=== PATIENT | female | born 1945 | race Caucasian/White ===

== ENCOUNTER → 2016-08-30 | Day surgery (SDC) | payer MEDICARE, BC ==
[~2016-08-30] MED LIST: LIDOCAINE 2% INJ (20 MG/ML) 20 ML MDV ONE
--- NOTE | 2016-08-30 10:54 | Operative Report ---
Operative Report DATE OF SURGERY: 08/30/16 PREOPERATIVE DIAGNOSIS: Asymmetric mammographic density upper outer quadrant left breast POSTOPERATIVE DIAGNOSIS: Same OPERATION: 1. Stereotactically directed incision mammography and core biopsies left breast. 2. Interpretation of intraoperative mammography and specimen radiograph. 3. Clip marker placement The upper outer quadrant left breast SURGEON: HAO DAVENPORT ANESTHESIA: Local TISSUE REMOVED OR ALTERED: Multiple cores left breast COMPLICATIONS: None ESTIMATED BLOOD LOSS: scant INTRAOPERATIVE FINDINGS: See below PROCEDURE: The patient was taken from the holding area to the radiology suite retractor room, with the left breast was placed in compression. Radiocarpal approach was taken to localize the area of interest which was in the upper outer quadrant of the left breast. This was an area of architectural distortion seen on the CC projection. After reviewing the images, and carefully considering the proximity of the target tissue to an overlying vein, we localized the 1 area of architectural distortion with the manuscript reader and the -15 view. Plan surgical time out conducted. The surface of the breast was prepped with Betadine, the skin anesthetized with 1% lidocaine, a narcisa made in the breast with 11 blade and the mammotome advanced the appropriate depth. Pre-and post- fire films of the mammotome showed satisfactory alignment with the target tissue. We then proceeded to obtain course in a circumferential fashion was well tolerated by the patient with negligible bleeding. Biopsy cores were recovered, placed in a container and imaged for documentation purposes. A clip marker was deployed into the upper part of the left breast, then the removed from the patient's left breast. She tolerated procedure well. Bleeding was negligible. Discharge instructions provided.
--- NOTE | 2016-08-30 10:56 | PDOC DISCHARGE SUMMARY ---
Discharge Summary (SDC) - Discharge Final Diagnosis: Asymmetric density upper quadrant left breast Date of Surgery: 08/30/16 Discharge Date: 08/30/16 Condition: Good Treatment or Instructions: Patient to work compressive bra, take Tylenol or Motrin when necessary pain, report also surgical clinic it scheduled follow-up date. She will take a shower when necessary Discharge Diet: As Tolerated Discharge Activity: Activity As Tolerated Home Care Assistance: None Needed Report the Following to Your Physician Immediately: Shortness of Breath, Increase in Pain, Fever over 101 Degrees
== END ==
LOC: RAD 09:31
PROVIDERS: ATTEND Surgery
PROC: 0HBU3ZX Excision of Left Breast, Percutaneous Approach, Diagnostic (ICD-10-PCS; principal; 2016-08-30)
DX: C50.412 Malignant neoplasm of upper-outer quadrant of left female breast (principal)
CPT/HCPCS: 88342 ×2; 88341 ×2; 88305 ×2; 19081; J3490

== ENCOUNTER 2016-10-17 07:44 | Day surgery (SDC) | payer MEDICARE, BC ==
[2016-10-10 09:00] LABS: HEMOGLOBIN 14.8 g/dL (12.0-15.5); HGB HCT DIFFERENCE 0.4; MEAN CORPUSCULAR HEMOGLOBIN 30.8 pg (27.0-33.4); MEAN CORPUSCULAR HGB CONC 33.6 g/dL (32.0-36.0); MEAN CORPUSCULAR VOLUME 91 fl (80-97); RED BLOOD COUNT 4.81 10^6/uL (3.72-5.28); RED CELL DISTRIBUTION WIDTH 13.6 % (11.5-14.0); WHITE BLOOD COUNT 6.5 10^3/uL (4.0-10.5)
[2016-10-10 09:29] LABS: ANION GAP 11 (5-19); BLOOD UREA NITROGEN 10 mg/dL (7-20); CALCIUM 9.7 mg/dL (8.4-10.2); CARBON DIOXIDE 27 mmol/L (22-30); CHLORIDE 100 mmol/L (98-107); CREATININE RESULT 0.64 mg/dL (0.52-1.25); GLUCOSE 102 mg/dL (75-110); POTASSIUM 4.6 mmol/L (3.6-5.0)
--- NOTE | 2016-10-10 13:34 | EKG REPORT ---
SEVERITY:- ABNORMAL ECG - SINUS RHYTHM NONSPECIFIC T ABNORMALITIES, LATERAL LEADS : Confirmed by: Eddy Deng MD 10-Oct-2016 13:33:47
[~2016-10-17 07:44] MED LIST changes: +CEFAZOLIN 1 GM/D5W RTU 1 GM/50 ML RTUPB IV ONE; +LIDOCAINE 0.5% INJ-PF (5 MG/ML) 50 ML SDV INJ PRN; -LIDOCAINE 2% INJ (20 MG/ML) 20 ML MDV ONE; +LIDOCAINE 4% TRANSPARENT DRESSING 5 GM KIT TP PRN; +RINGERS SOLUTION,LACTATED 1,000 ML IV PRN
[2016-10-17] MEDS ORDERED: SUCCINYLCHOLINE CHLORIDE INJ 200 MG/10 ML VIAL ONE (08:11)
[2016-10-17] MEDS ORDERED: DEXAMETHASONE SOD PHOSPHATE INJ 4 MG/1 ML VIAL ONE (08:11)
[2016-10-17] MEDS ORDERED: METOCLOPRAMIDE HCL INJ/PF 10 MG/2 ML SDV ONE (08:11)
[2016-10-17] MEDS ORDERED: ONDANSETRON HCL INJ/PF 4 MG/2 ML SDV ONE (08:11)
[2016-10-17] MEDS ORDERED: LIDOCAINE 2% INJ (20 MG/ML) 20 ML MDV ONE (09:14)
[2016-10-17] MEDS ORDERED: LIDOCAINE 1%/EPINEPHRINE INJ 20 ML VIAL ONE (09:30)
[2016-10-17] MEDS ORDERED: MICROFIBRILLAR COLLAGEN 1 GM PACK ONE (09:30)
--- NOTE | 2016-10-17 10:28 | RADIOLOGY REPORT (SQ) ---
EXAM DESCRIPTION: NM LYMPHATICS/LYMPH GLANDS COMPLETED DATE/TIME: 10/17/2016 9:49 am REASON FOR STUDY: LEFT BREAST CANCER SENTINEL NODE IMAGING C50.911 MALIGNANT NEOPLASM OF UNSP SITE OF RIGHT FEMALE NEVAEH COMPARISON: Outside mammograms and ultrasound 08/14/2016 Stereotactic biopsy 08/30/2016, with post biopsy two-view mammogram RADIONUCLIDE AND DOSE: 920 microcuries [id number] - Lymphoseek. The route of agent administration: Subcutaneous in the skin. TECHNIQUE: The skin of the left breast was prepped in sterile fashion. The radiopharmaceutical was administered in equally divided doses intradermal periareolar from the 12 to 3 o'clock position. LIMITATIONS: None. FINDINGS: Images demonstrate activity at the injection site. IMPRESSION: ADMINISTRATION OF RADIOPHARMACEUTICAL FOR SENTINEL LYMPH NODE EVALUATION. TECHNICAL DOCUMENTATION: JOB ID: [id number] [employer]- All Rights Reserved
[2016-10-17] MEDS ORDERED: HYDROMORPHONE HCL INJ/PF 2 MG/ML AMPULE ONE (10:52)
[2016-10-17] MEDS ORDERED: FENTANYL CITRATE INJ/PF 250 MCG/5 ML AMPULE ONE (10:52)
[2016-10-17] MEDS ORDERED: MIDAZOLAM 2 MG/2 ML INJ ONE (10:53)
[2016-10-17] MEDS ORDERED: PROPOFOL INJ 200 MG/20 ML VIAL IV ONE (10:53)
[2016-10-17] MEDS ORDERED: ACETAMINOPHEN 100 ML IV ONE (10:53)
[2016-10-17] MEDS ORDERED: SCOPOLAMINE HYDROBROMIDE 1.5 MG PATCH.TD72 ONE (10:53)
[2016-10-17] MEDS ORDERED: EPHEDRINE SULFATE INJ 50 MG/1 ML AMPULE ONE (10:53)
--- NOTE | 2016-10-17 10:57 | WOMENS IMAGING REPORT ---
EXAM DESCRIPTION: WIRE LOC MAMMO COMPLETED DATE/TIME: 10/17/2016 10:34 am REASON FOR STUDY: C50.911 C50.911 MALIGNANT NEOPLASM OF UNSP SITE OF RIGHT FEMALE NEVAEH COMPARISON: 08/30/2016 TECHNIQUE: The stereotactic clip in the left breast was localized mammographically using a grid mar ker. The skin of the breast was prepped in sterile fashion and local anesthesia was provided. The l ocalization needle was advanced to the target. The tip was positioned adjacent to the target and con firmed with two orthogonal views. Surgical dye was not injected for this procedure. The wire was jessica kenya through the needle and the hook engaged. Post procedure mammogram demonstrates satisfactory posit ion of the needle and wire. Specimen radiograph demonstrates the intact localization wire as well as the targeted lesion within t he biopsy specimen. LIMITATIONS: None. FINDINGS: Procedure as above. Pathology: Pending. IMPRESSION: SUCCESSFUL NEEDLE LOCALIZATION OF THE LESION IN THE LEFT BREAST. FOLLOW-UP PER THE Ge ZAMUDIO'S SURGEON. TECHNICAL DOCUMENTATION: JOB ID: [id number] [employer]- All Rights Reserved
[2016-10-17] MEDS ORDERED: MORPHINE SULFATE 10 MG/ML INJ IV PRN (13:07)
[2016-10-17] MEDS ORDERED: PROMETHAZINE HCL INJ 25 MG/1 ML VIAL IV PRN ×2 (13:07)
[2016-10-17] MEDS ORDERED: MEPERIDINE HCL/PF INJ 25 MG/1 ML DISP.SYRIN IV PRN (13:07)
[2016-10-17] MEDS ORDERED: DIPHENHYDRAMINE HCL 50 MG/ML VIAL IV PRN (13:07)
[2016-10-17] MEDS ORDERED: FENTANYL CITRATE INJ/PF 100 MCG/2 ML AMPUL IV PRN ×3 (13:07)
--- NOTE | 2016-10-17 13:43 | PDOC DISCHARGE SUMMARY ---
Discharge Summary (SDC) - Discharge Final Diagnosis: Left breast lumpectomy with sentinel node biopsy Date of Surgery: 10/17/16 Discharge Date: 10/17/16 Condition: Stable Treatment or Instructions: [facility] [address], [place] [address] Care Instructions Following Your Lumpectomy Activities: Resume normal activities when you feel comfortable. It is best to remain as active as possible to speed your recovery. It is common to experience some fatigue after surgery and you may find that short naps are helpful. Avoid strenuous activity such as weight lifting, tennis, etc at your surgical site for two weeks. Perform gentle arm exercises daily and do not favor your operative arm to due increased risk of mobility issues postoperatively. No driving for 7 days after surgery. Do not drive if you are taking pain medication other than Tylenol or Ibuprofen. No swimming, tub baths or soaking in a hot tub for 4 weeks. There are no dietary restrictions. Do not smoke as this impairs wound healing. Surgical Site care: Remove your dressing 48 hours after surgery. Leave skin glue underneath in place. You may shower after removing the dressing to include washing the wound with soap and water using your hands. Do not scrub the incision. Pat the area dry with a towel. You do not need to recover the wound although some patients find that they feel more comfortable using a light dressing for a few days to absorb any minimal drainage which may occur. If you use a dressing in this manner change it at least every day. Do not use heating pad or apply an ice pack to the operative site. You may apply deodorant if you are careful to avoid getting it on the wound itself. Medications: Take Toradol every 4 to 6 hours as needed for pain. You may rotate medication with Tylenol. Again, you cannot drive while taking narcotic pain medication. Resume all of your normal prescription medications after your surgery unless instructed otherwise. You may experience constipation after surgery while taking pain medications. If using a narcotic on a regular basis, take a stool softener such as Colace twice a day. It is helpful to stay hydrated by drinking lots of fluids. Walking is also helpful and is good exercise after surgery. If you need extra help, use Milk of Magnesia according to the directions on the package. Follow-up: Call our office at to make a follow-up appointment in 10-14 days. Your doctor will call to discuss the pathology report with you as soon as it is available. Concerns: If you had a sentinel lymph node biopsy with your lumpectomy, your urine may have a greenish discoloration. This is normal and will resolve as the blue dye slowly leaves your system. If you notice significant leakage around the drains , this is not normal. The drains may be clogged. Please call our office to come in immediately for the drains to be checked. Some bruising may occur and will go away over time. If you have a fever of 101.5 or greater, chills, redness at the incision site, excessive drainage from your wound or severe pain not relieved by pain medication, call your doctor. A physician is available 24 hours a day 7 days a week in addition to regular office hours. If problems arise after normal office hours please call the hospital at . Please call if you have any questions or concerns. Discharge Diet: As Tolerated Report the Following to Your Physician Immediately: Fever over 101 Degrees, Unusual Bleeding, Redness, Swelling, Warmth, Drainage-Foul Smelling
[2016-10-17 15:31] VITALS: BP 127/61
--- NOTE | 2016-10-17 16:08 | WOMENS IMAGING REPORT ---
EXAM DESCRIPTION: BREAST SPECIMEN COMPLETED DATE/TIME: 10/17/2016 1:03 pm REASON FOR STUDY: POST LT LUMPECTOMY C50.911 MALIGNANT NEOPLASM OF UNSP SITE OF RIGHT FEMALE NEVAEH COMPARISON: Needle localization procedure earlier today TECHNIQUE: Specimen radiograph from breast procedure performed in the operating room. LIMITATIONS: None. FINDINGS: Specimen radiograph from breast procedure performed in the operating room. The stereotac tic clip is in the breast parenchymal specimen. Please see procedure note for details and final pathology. IMPRESSION: Specimen radiograph contains the stereotactic clip and stereotactic biopsy site. Final pathology is pending. TECHNICAL DOCUMENTATION: JOB ID: [id number]
--- NOTE | 2016-10-17 16:51 | Operative Report ---
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 POSTOPERATIVE DIAGNOSIS: Same OPERATION: 1. [place] lymph node harvest left axilla 6. 2. Left breast lumpectomy following needle localization. 3. Utilization of intraoperative ultrasonography to guide dissection of lumpectomy SURGEON: HAO GAUTHIER NREMT: JESS LUNDBERG ANESTHESIA: GA TISSUE REMOVED OR ALTERED: [place] lymph nodes; left breast lumpectomy specimen COMPLICATIONS: None ESTIMATED BLOOD LOSS: Scant INTRAOPERATIVE FINDINGS: See below PROCEDURE: The patient was seen in the preop holding area where bedside neoprobe scanning was used to confirm uptake of radionuclide from the left breast into the left axilla. The patient was then taken to the operating room where general anesthesia was induced. Left arm was abducted, and left breast and left chest wall and axilla prepped and draped in sterile fashion. Because of a national shortage of methylene blue, only single mapping technique was used for sentinel node biopsy. Surgical plan and surgical timeout was conducted Neoprobe monitoring of the left axilla showed an area of increased activity in the low axilla. Skin was anesthetized with 1% lidocaine plain. A 2 cm incision was made with a knife, and sentinel lymph node harvest began. We performed the first in vivo harvest count number was [id number] and ex vivo count of 1705; sentinel lymph nodes to 3 were performed with ex vivo counts of 6963 and 1073. The fourth sentinel lymph node was likely fatty tissue without any activity ex vivo. The fifth sentinel lymph node had an in vivo count of 4142 and is in ex vivo count of 14,475. Finally a 6 specimen labeled sentinel lymph node hot had an ex vivo count of 28,626. A final specimen likely labeled container 7 contain primarily axillary fat. Nonetheless it was sent to pathology for analysis. At this point the background counts were negligible and we concluded the sentinel node biopsy portion of the procedure The patient prior to prepping had the needle and wire clipped with a wire clipper. We now approached the lumpectomy portion of the procedure. The skin was anesthetized 1% lidocaine with epinephrine. Approximately 5 cm incision was made in a curvilinear fashion along the 1-230 position left breast approximately 8 cm from the nipple. This incision was based on localizing the tip of the needle, tumor and clip within the tumor using ultrasonography. A lumpectomy specimen was then achieved using electrocautery and gentle traction. Ultrasonography again was used as a guide to direct the dissection. Once the lumpectomy specimen was freed from surrounding tissue it was labeled with a long suture in the lateral position short suture in the superior position, sent to radiology for imaging which showed retention of the clip, wire and needle within the tumor. The specimen was then sent to pathology where Dr. Cristhian Velazquez analyzed specimen and felt that it had possible surgical margins from the primary tumor. We returned to the wounds checked for bleeding there was none. Avitene was placed in the recess of the wound and the wound closed with 3-0 Vicryl Dermabond glue Postop procedure well extubated and taken recovery in stable condition ADRIANA Hodge, assisted with retracting tissue, hemostasis and closure of wounds.
== END 2016-10-17 15:05 | disposition home or self-care (01) ==
LOC: OROUT 07:44 → WI 15:05
PROVIDERS: ATTEND Surgery
PROC: 07B60ZX Excision of Left Axillary Lymphatic, Open Approach, Diagnostic (ICD-10-PCS; 2016-10-17)
PROC: 0HBU0ZZ Excision of Left Breast, Open Approach (ICD-10-PCS; 2016-10-17)
PROC: 07B60ZX Excision of Left Axillary Lymphatic, Open Approach, Diagnostic (ICD-10-PCS; 2016-10-17)
PROC: 0HBU0ZZ Excision of Left Breast, Open Approach (ICD-10-PCS; principal; 2016-10-17 11:30)
DX: C50.812 Malignant neoplasm of overlapping sites of left female breast (principal); I10 Essential (primary) hypertension; J45.909 Unspecified asthma, uncomplicated; M19.90 Unspecified osteoarthritis, unspecified site; Z88.5 Allergy status to narcotic agent; Z88.4 Allergy status to anesthetic agent; Z88.6 Allergy status to analgesic agent; Z79.899 Other long term (current) drug therapy
CPT/HCPCS: 19301; 38500; 93005; 36415; 85027; 80048; 88342 ×2; 88305 ×2; 88307 ×2; 88329; 78195; 93010; 19281; 76098; A9520; J2250; J3490 ×5; J0690; J1100; J3010; J2765; J0330; J2405; J2704; J0131; 1610; J1170

== ENCOUNTER → 2016-11-15 | Outpatient (CLI) | payer MEDICARE, BC ==
[2016-11-15 17:22] LABS: ABSOLUTE EOSINOPHILS # (AUTO) 0.2 10^3/uL (0.0-0.6); ABSOLUTE LYMPHOCYTES (AUTO) 2.8 10^3/uL (0.5-4.7); ABSOLUTE MONOCYTES (AUTO) 0.7 10^3/uL (0.1-1.4); ABSOLUTE NEUT (AUTO) 3.8 10^3/uL (1.7-8.2); BASOPHILS % (AUTO) 0.7 % (0-2); EOSINOPHILS % (AUTO) 2.3 % (0-6); HEMATOCRIT 42.1 % (36.0-47.0); HEMOGLOBIN 13.9 g/dL (12.0-15.5); HGB HCT DIFFERENCE -0.4; LYMPHOCYTES % (AUTO) 36.7 % (13-45); MEAN CORPUSCULAR HEMOGLOBIN 30.9 pg (27.0-33.4); MEAN CORPUSCULAR HGB CONC 32.9 g/dL (32.0-36.0); MEAN CORPUSCULAR VOLUME 94 fl (80-97); MONOCYTES % (AUTO) 9.6 % (3-13); RED BLOOD COUNT 4.49 10^6/uL (3.72-5.28); RED CELL DISTRIBUTION WIDTH 12.8 % (11.5-14.0); SEGMENTED NEUTROPHILS % (AUTO) 50.7 % (42-78); WHITE BLOOD COUNT 7.5 10^3/uL (4.0-10.5)
[2016-11-15 17:39] LABS: ALANINE AMINOTRANSFERASE 32 U/L (9-52); ALBUMIN 4.4 g/dL (3.5-5.0); ALKALINE PHOSPHATASE 82 U/L (38-126); ASPARTATE AMINO TRANSFERASE 29 U/L (14-36); BILIRUBIN,DIRECT 0.3 mg/dL (0.0-0.4); BILIRUBIN,TOTAL 0.4 mg/dL (0.2-1.3)
== END ==
LOC: OD 15:31
PROVIDERS: ATTEND Radiology Radiation Oncology
DX: C50.412 Malignant neoplasm of upper-outer quadrant of left female breast (principal); Z17.0 Estrogen receptor positive status [ER+]; Z79.899 Other long term (current) drug therapy
CPT/HCPCS: 36415; 80076; 85025

== ENCOUNTER → 2017-04-09 | Outpatient (CLI) | payer MEDICARE, BC ==
[2017-04-09 12:03] LABS: ALANINE AMINOTRANSFERASE 28 U/L (9-52); ALBUMIN 4.4 g/dL (3.5-5.0); ALKALINE PHOSPHATASE 57 U/L (38-126); ASPARTATE AMINO TRANSFERASE 26 U/L (14-36); BILIRUBIN,DIRECT 0.3 mg/dL (0.0-0.4); BILIRUBIN,TOTAL 0.4 mg/dL (0.2-1.3); TOTAL PROTEIN 6.9 g/dL (6.3-8.2)
== END ==
LOC: LAB 11:21
PROVIDERS: ATTEND Radiology Radiation Oncology
DX: C50.412 Malignant neoplasm of upper-outer quadrant of left female breast (principal); Z17.0 Estrogen receptor positive status [ER+]
CPT/HCPCS: 36415; 80076

== ENCOUNTER 2017-05-29 09:46 | Day surgery (SDC) | payer MEDICARE, BC ==
[~2017-05-29 09:46] MED LIST changes: -CEFAZOLIN 1 GM/D5W RTU 1 GM/50 ML RTUPB IV ONE; +KETOROLAC TROMETHAMINE 0.45% 4 DROP/0.4 ML DROPERETTE OS PRN; -LIDOCAINE 0.5% INJ-PF (5 MG/ML) 50 ML SDV INJ PRN; -LIDOCAINE 4% TRANSPARENT DRESSING 5 GM KIT TP PRN; +MIDAZOLAM 2 MG/2 ML INJ ONE; -RINGERS SOLUTION,LACTATED 1,000 ML IV PRN
[2017-05-29] MEDS ORDERED: CHONDR SU A NA/HYALUR INTRAOC KIT (SURGICARE) ONE (09:49)
[2017-05-29] MEDS ORDERED: LIDOCAINE 1% INJ-PF (10 MG/ML) 30 ML SDV ONE (09:49)
[2017-05-29] MEDS ORDERED: EPINEPHRINE INJ/PF 1 MG/1 ML AMPULE ONE (09:49)
[2017-05-29] MEDS: TROPICAMIDE 1% OPH SOLN 3 ML OS PRN ×3 (09:52→10:29)
[2017-05-29] MEDS: CYCLOPENTOLATE 0.2%/PHENYLEPHRINE 1% OPH SOLN 2 ML OS PRN ×3 (09:52→10:29)
[2017-05-29] MEDS: BESIFLOXACIN HCL 0.6% OPH SUSP 5 ML BOTTLE OS PRN ×4 (09:53→10:55)
[2017-05-29] MEDS: TETRACAINE HCL 0.5% OPH SOLN 0.6 ML DROPERETTE OS PRN ×3 (09:54→10:35)
[2017-05-29] MEDS: TOBRAMYCIN SULFATE/DEXAMETH OPH OINTMENT 3.5 GM ONE ×2 (10:55)
== END 2017-05-29 11:31 | disposition home or self-care (01) ==
LOC: SC 09:46
PROVIDERS: ATTEND Ophthalmology
PROC: 08RK3JZ Replacement of Left Lens with Synthetic Substitute, Percutaneous Approach (ICD-10-PCS; principal; 2017-05-29 10:30)
DX: H25.12 Age-related nuclear cataract, left eye (principal); I10 Essential (primary) hypertension; J45.909 Unspecified asthma, uncomplicated; Z79.51 Long term (current) use of inhaled steroids; Z79.899 Other long term (current) drug therapy; Z85.3 Personal history of malignant neoplasm of breast; Z88.6 Allergy status to analgesic agent; Z88.5 Allergy status to narcotic agent
CPT/HCPCS: 66984; V2630; J2250; J3490 ×3; A9270; J0171; 142

== ENCOUNTER 2017-06-12 06:37 | Day surgery (SDC) | payer MEDICARE, BC ==
[~2017-06-12 06:37] MED LIST changes: +KETOROLAC TROMETHAMINE 0.45% 4 DROP/0.4 ML DROPERETTE OD PRN; -KETOROLAC TROMETHAMINE 0.45% 4 DROP/0.4 ML DROPERETTE OS PRN; -MIDAZOLAM 2 MG/2 ML INJ ONE
[2017-06-12] MEDS ORDERED: MIDAZOLAM 2 MG/2 ML INJ ONE (06:50)
[2017-06-12] MEDS ORDERED: LIDOCAINE 2% INJ-PF (20 MG/ML) 10 ML AMPUL ONE (06:50)
[2017-06-12] MEDS ORDERED: ONDANSETRON HCL INJ/PF 4 MG/2 ML SDV ONE (06:50)
[2017-06-12] MEDS ORDERED: FENTANYL CITRATE INJ/PF 100 MCG/2 ML AMPUL ONE (06:50)
[2017-06-12] MEDS: CYCLOPENTOLATE 0.2%/PHENYLEPHRINE 1% OPH SOLN 2 ML OD PRN ×3 (06:53→07:13)
[2017-06-12] MEDS: BESIFLOXACIN HCL 0.6% OPH SUSP 5 ML BOTTLE OD PRN ×4 (06:53→07:45)
[2017-06-12] MEDS: TROPICAMIDE 1% OPH SOLN 3 ML OD PRN ×3 (06:53→07:13)
[2017-06-12] MEDS: TETRACAINE HCL 0.5% OPH SOLN 0.6 ML DROPERETTE OD PRN ×4 (06:54→07:27)
[2017-06-12] MEDS: CHONDR SU A NA/HYALUR INTRAOC KIT (SURGICARE) ONE ×2 (07:36)
[2017-06-12] MEDS: LIDOCAINE 1% INJ-PF (10 MG/ML) 30 ML SDV ONE ×2 (07:36)
[2017-06-12] MEDS: EPINEPHRINE INJ/PF 1 MG/1 ML AMPULE ONE ×2 (07:36)
[2017-06-12] MEDS: TOBRAMYCIN SULFATE/DEXAMETH OPH OINTMENT 3.5 GM ONE ×2 (07:45)
== END 2017-06-12 08:30 | disposition home or self-care (01) ==
LOC: SC 06:37
PROVIDERS: ATTEND Ophthalmology
PROC: 08RJ3JZ Replacement of Right Lens with Synthetic Substitute, Percutaneous Approach (ICD-10-PCS; principal; 2017-06-12 07:30)
DX: H25.11 Age-related nuclear cataract, right eye (principal); Z98.42 Cataract extraction status, left eye; J45.909 Unspecified asthma, uncomplicated; I10 Essential (primary) hypertension; Z79.51 Long term (current) use of inhaled steroids; Z79.899 Other long term (current) drug therapy; Z88.6 Allergy status to analgesic agent; Z88.5 Allergy status to narcotic agent; Z85.3 Personal history of malignant neoplasm of breast
CPT/HCPCS: 66984; V2630; J2250; J3490 ×3; A9270; J0171; J3010; J2405; 142

== ENCOUNTER → 2017-07-07 | Outpatient (CLI) | payer MEDICARE, BC ==
[2017-07-07 15:53] LABS: ALANINE AMINOTRANSFERASE 32 U/L (9-52); ALBUMIN 4.4 g/dL (3.5-5.0); ALKALINE PHOSPHATASE 51 U/L (38-126); ASPARTATE AMINO TRANSFERASE 28 U/L (14-36); BILIRUBIN,DIRECT 0.3 mg/dL (0.0-0.4); BILIRUBIN,TOTAL 0.3 mg/dL (0.2-1.3); TOTAL PROTEIN 7.2 g/dL (6.3-8.2)
== END ==
LOC: LAB 15:14
PROVIDERS: ATTEND Radiology Radiation Oncology
DX: C50.412 Malignant neoplasm of upper-outer quadrant of left female breast (principal); Z17.0 Estrogen receptor positive status [ER+]
CPT/HCPCS: 36415; 80076

== ENCOUNTER 2017-08-30 12:04 | Outpatient (CLI) | payer MEDICARE, BC ==
[2017-08-30] MEDS ORDERED: DENOSUMAB 60 MG/ML SYR 1 ML SUBCUT PRN (12:30)
[2017-08-30 14:32] VITALS: BP 125/68
== END 2017-08-30 14:33 | disposition home or self-care (01) ==
LOC: II 12:04
PROVIDERS: ATTEND Internal Medicine
PROC: 3E0130M Introduction of Antineoplastic, Monoclonal Antibody, into Subcutaneous Tissue, Percutaneous Approach (ICD-10-PCS; principal; 2017-08-30)
DX: M85.80 Other specified disorders of bone density and structure, unspecified site (principal); Z79.811 Long term (current) use of aromatase inhibitors
CPT/HCPCS: 96372; J0897